=== PATIENT | female | born 1975 | race African-American/Black ===

== ENCOUNTER 2017-12-14 13:02 | Emergency (ER) | payer OTHER ==
[~2017-12-14] VITALS: Ht 157.5 cm; Wt 61.5 kg
[~2017-12-14 13:02] MED LIST: AMBIEN10 MG PO; CLINDAMYCIN HC300 MG PO; DEPAKOTE ER500 MG PO; PERCOCET 5/31 TABLET PO; PERCOCET 7.51 TABLET PO; RISPERDAL2 MG PO; ZOLOFT100 MG PO; seroquel; trileptal
[2017-12-14 13:34] LABS: HEMATOCRIT 33.6 % (36.0-46.0); HEMOGLOBIN 12.6 G/DL (11.9-15.5); MCH 30.4 PG (29.0-34.0); MCHC 37.5 G/DL (30.0-36.0); PLATELET COUNT 319 K/uL (156-360); RBC DIS.WIDTH-CV 13.2 % (11.8-14.6); RBC DIS.WIDTH-SD 38.6 % (39-53); RED BLOOD COUNT 4.15 M/uL (3.80-5.20)
[2017-12-14 13:42] LABS: CHLORIDE 106 mEq/L (99-109); POTASSIUM 3.9 mEq/L (3.7-5.4); SODIUM 140 mEq/L (136-147)
[2017-12-14 13:44] LABS: GLUCOSE 83 mg/dL (70-99)
[2017-12-14 13:48] LABS: CREATININE 0.9 mg/dL (0.6-1.3); GFR ESTIMATE (CALCULATED) > 59 mL/min/
[2017-12-14 13:49] LABS: UREA NITROGEN (BUN) 4 mg/dL (9-23)
[2017-12-14 13:56] LABS: TROP-I INTERPRETATION NEGATIVE; TROPONIN-I < 0.01 ng/mL (0.0-0.30)
[2017-12-14] MEDS ORDERED: MOBIC7.5 MG PO (14:50)
[2017-12-14] MEDS ORDERED: FLEXERIL10 MG PO (14:50)
[2017-12-14 15:04] VITALS: BP 127/80
== END 2017-12-14 15:09 | disposition home or self-care (01) ==
LOC: EME 13:02
DX: S46.812A Strain of other muscles, fascia and tendons at shoulder and upper arm level, left arm, initial encounter (principal); M54.2 Cervicalgia; X58.XXXA Exposure to other specified factors, initial encounter; F17.200 Nicotine dependence, unspecified, uncomplicated
CPT/HCPCS: 71046; 80048; 84484; 85027; 93005; 99281; 99284